=== PATIENT | female | born 1955 | race Caucasian/White ===

== ENCOUNTER 2021-10-01 20:07 | Emergency (ER) | payer MEDICAID ==
[~2021-10-01] VITALS: Ht 157.5 cm; Wt 63.6 kg
--- NOTE | 2021-10-01 21:05 | PHYS DOC ---
Past Medical History Past Medical History: A-Fib, Anxiety, Depression, Diabetes-Type II, GERD, Hypertension, Hypothyroid Additional Past Surgical Histo: Unknown Alcohol Use: None Drug Use: None General Adult EDM: Chief Complaint: PSYCH EVALUATION HPI: HPI: Patient is a 66 year old female who presents to the emergency department for evaluation of possible suicidal ideation. Patient was brought from her long-term to the emergency department by EMS after staff at the long-term noted that the patient was found on the floor of her room. I asked her why she was laying on the floor and she replied that she was "waiting to ." Staff thus sent her to the emergency department to be evaluated. The patient denies any plan for suicide at this time. The patient has noted history of depression and anxiety. She states that God and Julio both talk to her but do not command her to hurt herself. She denies any other somatic complaints at this time. She does reiterate that she is waiting to because her sister "got everything." Review of Systems: Review of Systems: Constitutional: Denies fever or chills. [] Eyes: Denies change in visual acuity. [] HENT: Denies nasal congestion or sore throat. [] Respiratory: Denies cough or shortness of breath. [] Cardiovascular: Denies chest pain or edema. [] GI: Denies abdominal pain, nausea, vomiting, bloody stools or diarrhea. [] : Denies dysuria. [] Musculoskeletal: Denies back pain or joint pain. [] Integument: Denies rash. [] Neurologic: Denies headache, focal weakness or sensory changes. [] Endocrine: Denies polyuria or polydipsia. [] Lymphatic: Denies swollen glands. [] Psychiatric: Depression. [] Heart Score: C/O Chest Pain: No Risk Factors: Risk Factors: DM, Current or recent (<one month) smoker, HTN, HLP, family history of CAD, obesity. Risk Scores: Score 0 - 3: 2.5% MACE over next 6 weeks - Discharge Home Score 4 - 6: 20.3% MACE over next 6 weeks - Admit for Clinical Observation Score 7 - 10: 72.7% MACE over next 6 weeks - Early Invasive Strategies Allergies: Allergies: Allergies Coded Allergies Type Severity Reaction Last Updated Verified No Known Drug Allergies 10/01/21 No Physical Exam: PE: Constitutional: Well developed, well nourished, no acute distress, non-toxic appearance. [] HENT: Normocephalic, atraumatic, bilateral external ears normal, oropharynx moist, no oral exudates, nose normal. [] Eyes: PERRLA, EOMI, conjunctiva normal, no discharge. [] Neck: Normal range of motion, no tenderness, supple, no stridor. [] Cardiovascular: Irregular rhythm, normal rate, no murmur [] Lungs & Thorax: Bilateral breath sounds clear to auscultation [] Abdomen: Bowel sounds normal, soft, no tenderness, no masses, no pulsatile masses. [] Skin: Warm, dry, no erythema, no rash. [] Back: No tenderness, no CVA tenderness. [] Extremities: No tenderness, no cyanosis, no clubbing, ROM intact, no edema. [] Neurologic: Alert and oriented X 3, normal motor function, normal sensory function, no focal deficits noted. [] Psychologic: Patient voices wanting to , denies plan for suicide and denies homicidal thoughts, affect normal, judgement normal, mood normal. [] Current Patient Data: Labs: Laboratory Tests Test 10/01/21 21:20 White Blood Count 7.6 x10^3/uL Red Blood Count 4.76 x10^6/uL Hemoglobin 13.7 g/dL Hematocrit 42.9 % Mean Corpuscular Volume 90 fL Mean Corpuscular Hemoglobin 29 pg Mean Corpuscular Hemoglobin Concent 32 g/dL Red Cell Distribution Width 14.0 % Platelet Count 227 x10^3/uL Neutrophils (%) (Auto) 70 % Lymphocytes (%) (Auto) 20 % Monocytes (%) (Auto) 6 % Eosinophils (%) (Auto) 2 % Basophils (%) (Auto) 1 % Neutrophils # (Auto) 5.3 x10^3/uL Lymphocytes # (Auto) 1.5 x10^3/uL Monocytes # (Auto) 0.5 x10^3/uL Eosinophils # (Auto) 0.2 x10^3/uL Basophils # (Auto) 0.1 x10^3/uL Sodium Level 139 mmol/L Potassium Level 4.4 mmol/L Chloride Level 100 mmol/L Carbon Dioxide Level 25 mmol/L Anion Gap 14 Blood Urea Nitrogen 10 mg/dL Creatinine 0.9 mg/dL Estimated GFR (Cockcroft-Gault) 62.6 BUN/Creatinine Ratio 11 Glucose Level 290 mg/dL Calcium Level 9.5 mg/dL Magnesium Level 1.6 mg/dL Total Bilirubin 0.3 mg/dL Aspartate Amino Transf (AST/SGOT) 12 U/L Alanine Aminotransferase (ALT/SGPT) 20 U/L Alkaline Phosphatase 97 U/L Total Protein 7.4 g/dL Albumin 3.6 g/dL Albumin/Globulin Ratio 0.9 Thyroid Stimulating Hormone (TSH) 3.447 uIU/mL Vital Signs: Vital Signs Date Time Temp Pulse Resp B/P (MAP) Pulse Ox O2 Delivery O2 Flow Rate FiO2 10/01/21 20:07 98.4 88 16 132/103 (113) 97 Room Air 98.4 Vital Signs Date Time Temp Pulse Resp B/P (MAP) Pulse Ox O2 Delivery O2 Flow Rate FiO2 10/01/21 20:07 98.4 88 16 132/103 (113) 97 Room Air 98.4 EKG: EKG: Not performed [] Radiology/Procedures: Radiology/Procedures: Not performed [] Course & Med Decision Making: Course & Med Decision Making Pertinent Labs and Imaging studies reviewed. (See chart for details) Patient's lab work was reviewed and shows mostly stable findings. Given voicing thoughts of wanting to as well as erratic behavior reported at long-term, I consulted Amanda of the PAT service for psychiatric evaluation. After evaluation, the patient denied any suicidal ideation or plan to harm herself or anyone else. Patient psychiatric evaluation was completed and Amanda stated that the patient did not meet criteria for inpatient psychiatric care. She recommended that the patient follow-up with her doctor regarding adjustment of her current psychiatric medication regimen. Urinalysis was performed and showed findings consistent with urinary tract infection. Started on oral Keflex in the emergency department. Prescribed 7-day course of Keflex for outpatient treatment. Patient is appropriate at this time for discharge back to her long-term facility. Spoke with patient regarding plan of care and she is in agreement at time of disposition. [] Dragon Disclaimer: Dragon Disclaimer: This electronic medical record was generated, in whole or in part, using a voice recognition dictation system. Departure Departure Impression: Primary Impression: Urinary tract infection Qualified Codes: N39.0 - Urinary tract infection, site not specified Additional Impressions: Depression Qualified Codes: F32.A - Depression, unspecified Chronic a-fib Type 2 diabetes mellitus Qualified Codes: E11.65 - Type 2 diabetes mellitus with hyperglycemia Disposition: [facility] Condition: STABLE Patient Instructions: Depression, Adult, Urinary Tract Infection Additional Instructions: Follow-up with your primary care provider in 1 day for reevaluation. Return to the emergency department for any worsening symptoms. Scripts Cephalexin (KEFLEX) 500 Mg Capsule 1 CAP PO BID for 7 Days, #14 CAP Prov: HUGO DAUGHERTY MD 10/02/21 HUGO DAUGHERTY MD Oct 01, 2021 21:05
[2021-10-01 21:40] LABS: BASO # 0.1 x10^3/uL (0.0-0.2); BASO % 1 % (0-3); EOS # 0.2 x10^3/uL (0.0-0.7); EOS % 2 % (0-3); HEMATOCRIT 42.9 % (36.0-47.0); HEMOGLOBIN 13.7 g/dL (12.0-15.5); LYMPH # 1.5 x10^3/uL (1.0-4.8); LYMPH % 20 % (24-48); MEAN CORPUSCULAR HEMOGLOBIN 29 pg (25-35); MEAN CORPUSCULAR HGB CONC 32 g/dL (31-37); MEAN CORPUSCULAR VOLUME 90 fL (79-100); MONO # 0.5 x10^3/uL (0.0-1.1); MONO % 6 % (0-9); NEUT # 5.3 x10^3/uL (1.8-7.7); NEUT % 70 % (31-73); PLATELET COUNT 227 x10^3/uL (140-400); RED BLOOD COUNT 4.76 x10^6/uL (3.50-5.40); WHITE BLOOD COUNT 7.6 x10^3/uL (4.0-11.0)
[2021-10-01 21:56] LABS: CALCIUM 9.5 mg/dL (8.5-10.1); CREATININE 0.9 mg/dL (0.6-1.0); GFR 62.6; POTASSIUM 4.4 mmol/L (3.5-5.1)
[2021-10-01 22:01] LABS: ALBUMIN 3.6 g/dL (3.4-5.0); ALBUMIN/GLOBULIN RATIO 0.9 (1.0-1.7); MAGNESIUM 1.6 mg/dL (1.8-2.4); TOTAL BILIRUBIN 0.3 mg/dL (0.2-1.0); TOTAL PROTEIN 7.4 g/dL (6.4-8.2)
[2021-10-02 01:53] LABS: BILIRUBIN,URINE NEGATIVE (NEG); CLARITY,URINE CLEAR; COLOR,URINE YELLOW; NITRITE,URINE NEGATIVE (NEG); PROTEIN,URINE NEGATIVE (NEG-TRACE); UROBILINOGEN,URINE 0.2 mg/dL (0.2 mg/dL)
[2021-10-02 01:54] LABS: BACTERIA,URINE FEW /HPF (0-FEW); RBC,URINE 0 /HPF (0-2); WBC,URINE TNTC /HPF (0-4)
[2021-10-02 01:55] LABS: YEAST,URINE PRESENT /HPF
[2021-10-02] MEDS ORDERED: CEPH500C PO (02:58)
[2021-10-02] MEDS ORDERED: CEPHALEXIN 250 MG CAPSULE. PO ONE (03:30)
[2021-10-02 06:00] VITALS: BP 144/2
== END 2021-10-02 06:33 ==
LOC: ER 20:07
DX: N39.0 Urinary tract infection, site not specified (principal); F32.9 Major depressive disorder, single episode, unspecified; I48.20 Chronic atrial fibrillation, unspecified; E11.65 Type 2 diabetes mellitus with hyperglycemia; I48.91 Unspecified atrial fibrillation; F41.9 Anxiety disorder, unspecified; K21.9 Gastro-esophageal reflux disease without esophagitis; I10 Essential (primary) hypertension; E03.9 Hypothyroidism, unspecified
CPT/HCPCS: 36415; 80053; 81001; 83735; 84443; 85025; 87077; 87086; 87186; 99285-25